=== PATIENT | female | born 1965 | race American Indian/Alaskan Native ===

== ENCOUNTER 2020-11-22 15:51 | Emergency (ER) | payer OTHER ==
[2020-11-22 16:06] VITALS: BP 136/65
--- NOTE | 2020-11-22 16:14 | Emergency Department Report ---
ED Shortness of Breath HPI - General Chief Complaint: Dyspnea/Respdistress Stated Complaint: ZOË/CHEST PAIN Time Seen by Provider: 11/22/20 16:09 Source: patient Mode of arrival: Ambulatory Limitations: No Limitations - History of Present Illness Initial Comments: 55-year-old -[place] female presents to the emergency room complaining of difficulty breathing and chest discomfort. Patient states that she tested positive for Covid last Sunday. She reports that she has had fever body aches loss of smell denies any diarrhea and states her chest hurts when she coughs. MD Complaint: shortness of breath Onset/Timin -: week(s) Severity: mild Pain Scale: 2 Quality: aching Consistency: intermittent Improves With: nothing Worsens With: coughing Known History Of: other (Covid positive) Associated Symptoms: fever, cough Treatments Prior to Arrival: none - Related Data Home Oxygen Therapy: No Previous Rx's Medication Instructions Recorded Last Taken Type Azithromycin [Zithromax Z-CAMERON] 250 mg PO DAILY #6 tab 11/22/20 Unknown Rx predniSONE [Deltasone] 40 mg PO QDAY 5 Days #10 tab 11/22/20 Unknown Rx Allergies Allergy/AdvReac Type Severity Reaction Status Date / Time No Known Allergies Allergy Unverified 11/22/20 16:02 ED Review of Systems ROS: Stated complaint: ZOË/CHEST PAIN Other details as noted in HPI Comment: All other systems reviewed and negative ED Past Medical Hx - Past Medical History Previous Medical History?: No - Surgical History Past Surgical History?: Yes Additional Surgical History: x 1 - Medications Home Medications: Home Medications Medication Instructions Recorded Confirmed Last Taken Type Azithromycin [Zithromax Z-CAMERON] 250 mg PO DAILY #6 tab 11/22/20 Unknown Rx predniSONE [Deltasone] 40 mg PO QDAY 5 Days #10 tab 11/22/20 Unknown Rx ED Physical Exam - General Limitations: No Limitations General appearance: alert, in no apparent distress - Head Head exam: Present: atraumatic, normocephalic - Eye Eye exam: Present: normal appearance - ENT ENT exam: Present: mucous membranes moist - Respiratory Respiratory exam: Present: normal lung sounds bilaterally. Absent: respiratory distress, chest wall tenderness, accessory muscle use - Cardiovascular Cardiovascular Exam: Present: regular rate, normal rhythm. Absent: systolic murmur, diastolic murmur, rubs, gallop - GI/Abdominal GI/Abdominal exam: Present: soft, normal bowel sounds - Extremities Exam Extremities exam: Present: normal inspection, full ROM - Back Exam Back exam: Present: normal inspection, full ROM - Neurological Exam Neurological exam: Present: alert, oriented X3 - Psychiatric Psychiatric exam: Present: normal affect, normal mood - Skin Skin exam: Present: warm, dry, intact, normal color. Absent: rash ED Course Vital Signs 11/22/20 16:02 Temperature 98.7 F Pulse Rate 74 Respiratory 22 Rate Blood Pressure 136/65 [Right] O2 Sat by Pulse 98 Oximetry ED Medical Decision Making - Radiology Data Radiology results: report reviewed Patient: GREGG MCGOWAN MR#: [id number] 37 : 1965 Acct:[id number] Age/Sex: 55 / F ADM Date: 11/22/20 Loc: ED Attending Dr: Ordering Physician: DEA CHONG Date of Service: 11/22/20 Procedure(s): XR chest routine 2V Accession Number(s): [id number] cc: DEA CHONG Fluoro Time In Minutes: CHEST 2 VIEWS INDICATION: ZOË + COVID. COMPARISON: None. FINDINGS: Support devices: None. Heart: Within normal limits. Lungs/Pleura: Diminished lung volumes. Mild increased markings at the mid/lower zones. No significant pleural effusion. IMPRESSION: 1. Decreased lung volumes. 2. Suspect basilar pneumonia. Signer Name: Jai Saldaña MD Signed: 11/22/2020 4:27 PM Workstation Name: [id number] Transcribed By: ES Dictated By: Jai Saldaña MD Electronically Authenticated By: Jai Saldaña MD Signed Date/Time: 11/22/20 1627 DD/ 25 TD/TT: - Medical Decision Making 55-year-old -[place] female presents to the emergency room complaining of difficulty breathing and chest discomfort. Patient states that she tested positive for Covid last Sunday. She reports that she has had fever body aches loss of smell denies any diarrhea and states her chest hurts when she coughs. Chest x-rays been ordered Critical care attestation.: If time is entered above; I have spent that time in minutes in the direct care of this critically ill patient, excluding procedure time. ED Disposition Clinical Impression: Pneumonia due to 2019 novel coronavirus Disposition: DC-01 TO HOME OR SELFCARE Is pt being admited?: No Does the pt Need Aspirin: No Condition: Stable Instructions: Bacterial Pneumonia (ED), Prevent the Spread of COVID-19 if You Are Sick - CDC, COVID-19 Frequently Asked Questions Additional Instructions: Chest x-ray shows that you have pneumonia. Will be placed on antibiotics and steroid to follow-up with your primary care provider. Return back to the emergency room if your symptoms worsen. You can take Tylenol or ibuprofen for body aches and fevers. Prescriptions: predniSONE [Deltasone] 40 mg PO QDAY 5 Days #10 tab Azithromycin [Zithromax Z-CAMERON] 250 mg PO DAILY #6 tab Referrals: Your, Primary Care Provider [Other] - 3-5 Days Forms: Work/School Release Form(ED)
--- NOTE | 2020-11-22 16:32 | XRay Report ---
CHEST 2 VIEWS INDICATION: ZOË + COVID. COMPARISON: None. FINDINGS: Support devices: None. Heart: Within normal limits. Lungs/Pleura: Diminished lung volumes. Mild increased markings at the mid/lower zones. No significa nt pleural effusion. IMPRESSION: 1. Decreased lung volumes. 2. Suspect basilar pneumonia. Signer Name: Jai Saldaña MD Signed: 11/22/2020 4:27 PM Workstation Name: [id number]
== END 2020-11-22 19:30 | disposition home or self-care (01) ==
LOC: ED 15:51
DX: J12.82 Pneumonia due to coronavirus disease 2019 (principal); Z79.2 Long term (current) use of antibiotics; Z79.899 Other long term (current) drug therapy; Z98.890 Other specified postprocedural states
CPT/HCPCS: 71046